=== PATIENT | female | born 1945 | race Caucasian/White ===

== ENCOUNTER 2025-07-10 10:14 | Inpatient (IN) | payer OTHER ==
[~2025-07-10] VITALS: Ht 154.9 cm; Wt 56.7 kg
[2025-07-10 10:35] LABS: BASOPHILS ABSOLUTE AUTO 0.04 K/mm3 (0.00-0.23); BASOPHILS PERCENT AUTO 0 % (0-2); EOSINOPHILS ABSOLUTE AUTO 0.03 K/mm3 (0.00-0.68); EOSINOPHILS PERCENT AUTO 0 % (0-6); Hematocrit 44.4 % (33.0-51.0); Hemoglobin 15.1 g/dL (11.5-16.0); IMMATURE GRAN ABSOLUTE AUTO 0.02 K/mm3 (0.00-0.10); IMMATURE GRAN PERCENT AUTO 0 % (0-1); LYMPHOCYTES ABSOLUTE AUTO 1.04 K/mm3 (0.84-5.20); LYMPHOCYTES PERCENT AUTO 11 % (21-46); MONOCYTES ABSOLUTE AUTO 0.72 K/mm3 (0.16-1.47); MONOCYTES PERCENT AUTO 8 % (4-13); Mean Corpuscular HGB Conc 34.0 g/dL (31.5-36.5); Mean Corpuscular Volume 95 fL (80-100); NEUTROPHILS ABSOLUTE AUTO 7.45 K/mm3 (1.96-9.15); NEUTROPHILS PERCENT AUTO 80 % (41-73); NRBC ABSOLUTE 0.00 K/mm3 (0.00-0.02); NRBC Auto 0.0 /100 WBC (0.0-0.2); Platelet Count 244 K/mm3 (150-400); RDW Coefficient Variation 12.9 % (11.7-14.2); RDW Standard Deviation 45.3 fL (35.1-46.3)
[2025-07-10] MEDS ORDERED: Diltiazem HCl 5 MG / ML 5ML Vial IV ONE (10:40)
[2025-07-10 11:02] LABS: Alanine Aminotransfer (ALT/SGP 47.0 U/L (12-78); Albumin, Blood 3.5 g/dL (3.4-5.0); Albumin/Globulin Ratio 1.2 (0.8-1.8); Anion Gap 10.0 mmol/L (3-11); Aspartate Aminotrans (AST/SGOT 47.0 U/L (12-37); Bilirubin, Total 0.5 mg/dL (0.1-1.0); Blood Urea Nitrogen 20.0 mg/dL (8-24); CO2, Blood 22.0 mmol/L (21-32); Calcium, Blood 9.5 mg/dL (8.5-10.1); Chloride, Blood 107.0 mmol/L (98-108); Creatinine, Blood 0.94 mg/dL (0.40-1.00); Globulin, Blood 2.8 g/dL (2.2-4.0); Glucose, Blood 118.0 mg/dL (70-99); Potassium, Blood 4.3 mmol/L (3.5-5.5); Sodium, Blood 135.0 mmol/L (136-145); Total Protein, Blood 6.3 g/dL (6.4-8.2)
[2025-07-10] MEDS ORDERED: Metoprolol Tartrate 1 MG/ML 5 ML VIAL IV PRN (12:40)
[2025-07-10] MEDS ORDERED: FLU VACC TS2025(65UP)/MF59C/PF 45 MCG/0.5 ML SYRINGE IM SCH (12:45)
[2025-07-10 13:45] VITALS: BP 114/89
[2025-07-10] MEDS ORDERED: ALEN70 PO (14:04)
[2025-07-10] MEDS ORDERED: ABILIFY MYCITE5 M2 PO (14:05)
[2025-07-10] MEDS ORDERED: BUPROPION XL150 M1 PO (14:06)
[2025-07-10] MEDS ORDERED: GABA100 PO (14:10)
[2025-07-10] MEDS ORDERED: PRILOSEC OTC20 MG PO (14:12)
[2025-07-10] MEDS ORDERED: EUTHYROX100 MCG PO (14:12)
[2025-07-10] MEDS ORDERED: Amoxicillin500 MG PO (14:13)
[2025-07-10] MEDS ORDERED: FLUTICASONE P15.8 M1 (14:15)
[2025-07-10] MEDS ORDERED: Hydroxyzine HCl50 MG (14:16)
[2025-07-10] MEDS ORDERED: LORA10ER PO (14:17)
[2025-07-10] MEDS ORDERED: SALS500 PO (14:17)
[2025-07-10] MEDS ORDERED: CINNAMON EXTRA500 MG PO (14:18)
[2025-07-10] MEDS ORDERED: CURCUMIN PHYTO500 MG PO (14:20)
[2025-07-10] MEDS ORDERED: FLAX PO (14:21)
[2025-07-10] MEDS ORDERED: Garlic500 MG PO (14:21)
[2025-07-10] MEDS ORDERED: MELATONIN5 M1 PO (14:22)
[2025-07-10] MEDS ORDERED: NIAC500 PO (14:23)
[2025-07-10] MEDS ORDERED: MULTI-VITAMIN1 EAC2 PO (14:23)
[2025-07-10] MEDS ORDERED: Vitamin B Comple1 EA PO (14:24)
[2025-07-10] MEDS ORDERED: ASCO500 PO (14:24)
[2025-07-10] MEDS ORDERED: TOCO1000 PO (14:25)
[2025-07-10] MEDS ORDERED: Calcium Carbon500 MG PO (14:28)
[2025-07-10] MEDS ORDERED: MAGNESIUM OXID500 MG PO (14:29)
--- NOTE | 2025-07-10 15:10 | NUR ---
ASSUMPTION OF CARE: ASSUMED CARE OF PT AT APPROX 1345 FROM [facility] IN ED. PT A/O X4, ABLE TO MAKE NEEDS KNOWN. ALL STRENGTH EQUAL BILATERALLY. SBA TO BED FROM [facility], ABLE TO VOID URINE UPON ARRIVAL. ROOM AIR, SATS >93%. DENIES SOB. CPAP @ NOC. AFIB 120-130s, 150-160s ON EXERTION STANDING UP. DENIES CHEST PAIN/PRESSURE. ALL OTHER VSS. PT REQUESTED TO CHANGED CODE STATUS FROM DNI TO FULL CODE. MADE AWARE. ORDERED PUT IN FOR FULL CODE. PT LYING IN BED, CALL IN REACH. WILL REPORT TO ONCIVONE RN.
[2025-07-10 16:25] VITALS: BP 115/80
[2025-07-10 20:22] VITALS: BP 112/82
[2025-07-10 23:59] VITALS: BP 107/89
[2025-07-11 03:45] LABS: Source, Urine Clean Catch
[2025-07-11 04:02] LABS: Bilirubin, Urine Neg (Neg); Glucose Qualitative, Urine Neg (Neg); Ketones, Urine Neg (Neg); Leukocyte Esterase, Urine Neg (Neg); Protein, Urine Neg (Neg); Specific Gravity, Urine 1.015 (1.003-1.022); Urobilinogen, Urine NORM (Normal)
[2025-07-11 04:12] VITALS: BP 105/66
[2025-07-11 04:16] LABS: Color, Urine Yellow (P-Yellow)
--- NOTE | 2025-07-11 06:35 | NUR ---
SHIFT SUMMARY: PT A&OX4 CALM AND COOPERATIVE. ABLE TO MAKE NEEDS KNOWN AND CALLS APPROPRIATELY. AFIB 80S-110S. BP STABLE AND MAINTAINING >92% ON RA. PT TOLERATED CPAP THROUGH THE NIGHT. UA COMPLETED. PT SYNTHYROID ORDERED AND [facility] REC IS COMPLETED. MED LIST IN CHART WELL. PT 1 PERSON ASSIST TO BSC. BED IS LOW AND LOCKED. CALL LIGHT WITHIN REACH. CONTINUE WITH CURRENT PLAN OF CARE.
[2025-07-11 06:39] LABS: BASOPHILS ABSOLUTE AUTO 0.04 K/mm3 (0.00-0.23); BASOPHILS PERCENT AUTO 1 % (0-2); EOSINOPHILS ABSOLUTE AUTO 0.13 K/mm3 (0.00-0.68); EOSINOPHILS PERCENT AUTO 2 % (0-6); Hematocrit 42.2 % (33.0-51.0); Hemoglobin 14.4 g/dL (11.5-16.0); IMMATURE GRAN ABSOLUTE AUTO 0.01 K/mm3 (0.00-0.10); IMMATURE GRAN PERCENT AUTO 0 % (0-1); LYMPHOCYTES ABSOLUTE AUTO 1.94 K/mm3 (0.84-5.20); LYMPHOCYTES PERCENT AUTO 27 % (21-46); MONOCYTES ABSOLUTE AUTO 0.70 K/mm3 (0.16-1.47); MONOCYTES PERCENT AUTO 10 % (4-13); Mean Corpuscular HGB Conc 34.1 g/dL (31.5-36.5); Mean Corpuscular Volume 96 fL (80-100); NEUTROPHILS ABSOLUTE AUTO 4.48 K/mm3 (1.96-9.15); NEUTROPHILS PERCENT AUTO 61 % (41-73); NRBC ABSOLUTE 0.00 K/mm3 (0.00-0.02); NRBC Auto 0.0 /100 WBC (0.0-0.2); Platelet Count 215 K/mm3 (150-400); RDW Coefficient Variation 12.7 % (11.7-14.2); RDW Standard Deviation 45.1 fL (35.1-46.3)
[2025-07-11 07:04] LABS: Alanine Aminotransfer (ALT/SGP 45.0 U/L (12-78); Albumin, Blood 3.0 g/dL (3.4-5.0); Albumin/Globulin Ratio 1.2 (0.8-1.8); Anion Gap 10.0 mmol/L (3-11); Aspartate Aminotrans (AST/SGOT 37.0 U/L (12-37); Bilirubin, Total 0.5 mg/dL (0.1-1.0); Blood Urea Nitrogen 20.0 mg/dL (8-24); CO2, Blood 22.0 mmol/L (21-32); Calcium, Blood 8.8 mg/dL (8.5-10.1); Chloride, Blood 111.0 mmol/L (98-108); Creatinine, Blood 0.76 mg/dL (0.40-1.00); Globulin, Blood 2.5 g/dL (2.2-4.0); Glucose, Blood 88.0 mg/dL (70-99); Magnesium, Blood 1.8 mg/dL (1.6-2.4); Phosphorus, Blood 2.8 mg/dL (2.5-4.9); Potassium, Blood 4.2 mmol/L (3.5-5.5); Sodium, Blood 139.0 mmol/L (136-145); Total Protein, Blood 5.5 g/dL (6.4-8.2)
[2025-07-11 08:11] VITALS: BP 102/73
[2025-07-11] MEDS ORDERED: Vitamin B Complex 1 EA Softgel PO SCH (09:00)
[2025-07-11] MEDS ORDERED: Fluticasone 0.05% Nasal Spray PRN (09:00)
[2025-07-11] MEDS ORDERED: Flax Seed 1,000 MG CAP PO SCH (09:00)
[2025-07-11] MEDS ORDERED: Vitamin E 400 Intn'l Units Cap PO SCH (09:30)
[2025-07-11 11:19] VITALS: BP 93/69
[2025-07-11 15:36] VITALS: BP 99/69
--- NOTE | 2025-07-11 15:43 | NUR ---
TRANSFER OF CARE: A/O X4, PLEASANT AND COOPERATIVE WIHT CARE, ABLE TO COMMUNICATE NEEDS, USES CALL LIGHT APPROPRIATLEY. AFIB, HRR 90'S-120'S, DENIES CHEST PAIN, PRESSURE, OR DIZZINESS. SPO2 >92% ON RA, USES CPAP AT NIGHT. TOLERATING DIET AND MEDS WITH WATER, DENIES N/V/D. 1PA W/FWW TO TOILET OR COMMODE. REPORT GIVEN TO 352 RN AT APPROX 1545, PT LEFT UNIT IN WC WITH ALL BELONGINGS AND WITHOUT INCIDENT.
--- NOTE | 2025-07-11 15:53 | NUR ---
ASSUMPTION OF CARE: PATIENT ARRIVED TO FLOOR VIA WHEELCHAIR. A&Ox4. PLEASANT AND COOPERATIVE c CARE. PROVIDED c ICE WATER AND CALL LIGHT. BED IN LOWEST POSITION. ACUTE NEEDS MET. TELE IN PLACE.
--- NOTE | 2025-07-11 19:25 | NUR ---
END OF SHIFT SUMMARY: A&Ox4. PLEASANT AND COOPERATIVE WITH CARE. CALLS APPROPRIATELY AND IS ABLE TO ADVOCATE NEEDS EFFECTIVELY. VSS. TELE STRIP IN CHART REVIEWED. BREATHING EVEN AND UNLABORED c RA. CPAP @ BEDSIDE. CONTINENT OF BOWEL AND BLADDER. TOLERATING HH DIET. AMBULATES c FWW TO BSC. MEDS WHOLE c FLUIDS. BED IN LOWEST POSITION, CALL LIGHT WITHIN REACH, ALL NEEDS MET. REPORT TO ONCOMING NURSE.
[2025-07-11 19:37] VITALS: BP 101/88
[2025-07-11 23:50] VITALS: BP 91/71
[2025-07-12 03:18] VITALS: BP 93/60
--- NOTE | 2025-07-12 03:40 | NUR ---
END OF SHIFT SUMMARY: A&Ox4. ADMITTED FOR AFIB WITH RVR. [facility] PATIENT. PLEASANT AND COOPERATIVE WITH CARE. CALLS APPROPRIATELY AND IS ABLE TO ADVOCATE NEEDS EFFECTIVELY. STARTED METOPROLOL, ON ELIQUIS, CPAP AT HS. ON TELE - AFIB AT 108 WITH PVCS. ECHO PERFORMED PREVIOUS SHIFT. CONTINENT OF BOWEL AND BLADDER. STANDBY ASSIST TO THE BEDSIDE COMMODE. PATIENT STATED LAST BM WAS 07/10/25. TAKES MEDS WHOLE c FLUIDS. POSSIBLE DC HOME TOMORROW. BED IN LOWEST POSITION. CALL LIGHT WITHIN REACH. REPORT TO ONCOMING NURSE.
[2025-07-12 07:36] VITALS: BP 115/87
[2025-07-12] MEDS ORDERED: Multivitamins 1 Tab PO SCH (09:00)
[2025-07-12] MEDS ORDERED: ELIQUIS2.5 MG PO (12:31)
[2025-07-12] MEDS ORDERED: METO50ER PO (12:33)
--- NOTE | 2025-07-12 13:48 | NUR ---
1228 DISCHARGED HOME WITH FRIEND, DISCHARGE INSTRUCTION GIVEN TO PATIENT AND FRIEND, BOTH STATED UNDERSTANDING AND DENIED FURTHER QUESTIONS, PLEASANT TO CARE
== END 2025-07-12 13:23 | disposition home or self-care (01) | DRG 309 ==
LOC: ER 10:14 → PCU 10:15 → MEDS 07-11 15:58
PROVIDERS: Internal Medicine; Student in an Organized Health Care Education/Training Program; ADMIT Internal Medicine
DX: I48.91 Unspecified atrial fibrillation (principal); E87.1 Hypo-osmolality and hyponatremia; E03.9 Hypothyroidism, unspecified; I95.2 Hypotension due to drugs; T46.1X5A Adverse effect of calcium-channel blockers, initial encounter; R79.89 Other specified abnormal findings of blood chemistry; E86.1 Hypovolemia; I49.3 Ventricular premature depolarization; Z79.890 Hormone replacement therapy; Z88.8 Allergy status to other drugs, medicaments and biological substances; Z79.83 Long term (current) use of bisphosphonates; Z79.899 Other long term (current) drug therapy
CPT/HCPCS: 36415; 71046; 80053; 81003; 83735; 83880; 84100; 84443; 85025; 93005; 93010; 93306; 94660; 94762; 96374; 99285-25; A9270; G0378